=== PATIENT | female | born 1980 | race Caucasian/White ===

== ENCOUNTER 2017-05-07 07:36 | Emergency (ER) | payer OTHER ==
[~2017-05-07] VITALS: Ht 157.5 cm; Wt 50.8 kg
[~2017-05-07 07:36] MED LIST: HYDR-971 PO; LEVO500T59 PO; METR500T PO; ONDA4TAB7 PO
[2017-05-07] MEDS ORDERED: IV NORMAL SALINE 1,000ML 1,000 ML IV SCH (07:55)
[2017-05-07] MEDS ORDERED: fentaNYL PF 100 MCG/2 ML VIAL IV PRN (08:00)
[2017-05-07] MEDS ORDERED: IOHEXOL 300 MG/ML 75 ML VIAL. IV ONE (08:15)
[2017-05-07] MEDS ORDERED: ONDANSETRON PF 4 MG/2 ML VIAL. IV ONE (08:15)
[2017-05-07] MEDS ORDERED: LIDOCAINE 2% TOPICAL JELLY 30GM TUBE. TP ONE (08:24)
[2017-05-07 09:00] LABS: BASO % 0 % (0-3); EOS # 0.2 x10^3/uL (0.0-0.7); EOS % 1 % (0-3); HEMATOCRIT 40.5 % (36.0-47.0); HEMOGLOBIN 13.2 g/dL (12.0-15.5); LYMPH # 1.3 x10^3/uL (1.0-4.8); LYMPH % 10 % (24-48); MEAN CORPUSCULAR HEMOGLOBIN 30 pg (25-35); MEAN CORPUSCULAR HGB CONC 33 g/dL (31-37); MEAN CORPUSCULAR VOLUME 93 fL (79-100); MONO # 1.3 x10^3/uL (0.0-1.1); MONO % 10 % (0-9); NEUT # 10.5 x10^3uL (1.8-7.7); NEUT % 79 % (31-73); PLATELET COUNT 493 x10^3/uL (140-400); RED BLOOD COUNT 4.36 x10^6/uL (3.50-5.40); WHITE BLOOD COUNT 13.2 x10^3/uL (4.0-11.0)
[2017-05-07 09:07] LABS: ALBUMIN/GLOBULIN RATIO 0.6 (1.0-1.7); CALCIUM 9.1 mg/dL (8.5-10.1); CREATININE 0.7 mg/dL (0.6-1.0); GFR 93.6; POTASSIUM 3.7 mmol/L (3.5-5.1); TOTAL BILIRUBIN 0.3 mg/dL (0.2-1.0); TOTAL PROTEIN 8.2 g/dL (6.4-8.2)
[2017-05-07] MEDS ORDERED: HYDROmorphone PF 2 MG/ML VIAL ONE (09:09)
[2017-05-07] MEDS: HYDROmorphone PF 1 MG/ML DISP.SYRIN IV/SQ PRN ×2 (09:16→09:46)
--- NOTE | 2017-05-07 09:18 | PHYS DOC ---
Past History Past Medical History: IBS Past Surgical History: Appendectomy Alcohol Use: None Drug Use: None Adult General Chief Complaint Chief Complaint: abdominal and back pain HPI HPI Patient is a 37-year-old female with stage IV colon cancer who presents to the ED with left-sided lower back pain and nausea and vomiting since last night. She 's never had pain in this location and doesn't know what it could be. She has vomited a couple of times. No blood in that. She may have vomited because the pain was so bad, she really can't say. Patient had surgery in February for colon cancer, she has an ostomy. She was referred to where she has surgery planned in a few days to remove some cancer in her duodenum and also a hysterectomy with BSO. She was doing well until this pain began. She denies fever or chills. She said she recently had a CT scan at and they told her that she had pneumonia based on that scan, but they decided to not put her on antibiotics because she hasn't had a cough or fever or chills. Review of Systems Review of Systems Constitutional: Denies fever or chills [] Eyes: Denies change in visual acuity, redness, or eye pain [] HENT: Denies nasal congestion or sore throat [] Respiratory: Denies cough or shortness of breath [] Cardiovascular: Denies chest pain GI: As in history of present illness : Denies dysuria or hematuria [] Musculoskeletal: As in history of present illness Integument: Denies rash or skin lesions [] Neurologic: Denies headache, focal weakness or sensory changes [] Current Medications Current Medications Current Medications Medications (Trade) Dose Ordered Sig/Ayana Start Time Stop Time Status Last Admin Dose Admin Fentanyl Citrate (Fentanyl 2ml Vial) 50 mcg PRN Q15MIN PRN 05/07/17 08:00 05/08/17 07:59 05/07/17 08:40 50 MCG Hydromorphone HCl (Dilaudid) 2 mg STK-MED ONCE 05/07/17 09:09 05/07/17 09:10 DC Iohexol (Omnipaque 300 Mg/ml) 75 ml 1X ONCE 05/07/17 08:15 05/07/17 08:16 DC 05/07/17 08:47 75 ML Lidocaine HCl (Xylocaine 2% Topical 30gm Tube) 30 quinn STK-MED ONCE 05/07/17 08:24 05/07/17 08:25 DC Ondansetron HCl (Zofran) 4 mg 1X ONCE 05/07/17 08:15 05/07/17 08:16 DC 05/07/17 08:40 4 MG Sodium Chloride 1,000 ml @ 1,000 mls/hr Q1H 05/07/17 07:55 05/07/17 08:54 DC 05/07/17 08:40 1,000 MLS/HR Allergies Allergies Allergies Coded Allergies Type Severity Reaction Last Updated Verified mesalamine Allergy Intermediate hives 11/29/16 Yes Physical Exam Physical Exam Constitutional: Well developed, well nourished, appears uncomfortable, alert, mentating normally. HENT: Normocephalic, atraumatic, bilateral external ears normal, nose normal. [] Eyes: conjunctiva normal, no discharge. [] Neck: Normal range of motion, supple, no stridor. [] Cardiovascular:Heart rate regular rhythm, no murmur [] Lungs & Thorax: Bilateral breath sounds clear to auscultation [] Abdomen: Bowel sounds normal, nondistended, no masses, no pulsatile masses. Ostomy present in the right lower quadrant. Well-healed midline scar. Tenderness to palpation in the left lower quadrant without rebound or guarding. Skin: Warm, dry, no erythema, no rash. [] Back: No tenderness, no CVA tenderness. [] Extremities: No tenderness, no cyanosis, no clubbing, ROM intact, no edema. [] Neurologic: Alert and oriented X 3, normal motor function, normal sensory function, no focal deficits noted. [] Current Patient Data Lab Results Laboratory Tests Test 05/07/17 08:38 White Blood Count 13.2 x10^3/uL (4.0-11.0) H Red Blood Count 4.36 x10^6/uL (3.50-5.40) Hemoglobin 13.2 g/dL (12.0-15.5) Hematocrit 40.5 % (36.0-47.0) Mean Corpuscular Volume 93 fL (79-100) Mean Corpuscular Hemoglobin 30 pg (25-35) Mean Corpuscular Hemoglobin Concent 33 g/dL (31-37) Red Cell Distribution Width 17.0 % (11.5-14.5) H Platelet Count 493 x10^3/uL (140-400) H Neutrophils (%) (Auto) 79 % (31-73) H Lymphocytes (%) (Auto) 10 % (24-48) L Monocytes (%) (Auto) 10 % (0-9) H Eosinophils (%) (Auto) 1 % (0-3) Basophils (%) (Auto) 0 % (0-3) Neutrophils # (Auto) 10.5 x10^3uL (1.8-7.7) H Lymphocytes # (Auto) 1.3 x10^3/uL (1.0-4.8) Monocytes # (Auto) 1.3 x10^3/uL (0.0-1.1) H Eosinophils # (Auto) 0.2 x10^3/uL (0.0-0.7) Basophils # (Auto) 0.0 x10^3/uL (0.0-0.2) Sodium Level 135 mmol/L (136-145) L Potassium Level 3.7 mmol/L (3.5-5.1) Chloride Level 100 mmol/L (98-107) Carbon Dioxide Level 25 mmol/L (21-32) Anion Gap 10 (6-14) Blood Urea Nitrogen 11 mg/dL (7-20) Creatinine 0.7 mg/dL (0.6-1.0) Estimated GFR (Cockcroft-Gault) 93.6 BUN/Creatinine Ratio 16 (6-20) Glucose Level 92 mg/dL (70-99) Calcium Level 9.1 mg/dL (8.5-10.1) Total Bilirubin 0.3 mg/dL (0.2-1.0) Aspartate Amino Transferase (AST) 21 U/L (15-37) Alanine Aminotransferase (ALT) 26 U/L (14-59) Alkaline Phosphatase 212 U/L (46-116) H Total Protein 8.2 g/dL (6.4-8.2) Albumin 3.0 g/dL (3.4-5.0) L Albumin/Globulin Ratio 0.6 (1.0-1.7) L Lipase 74 U/L (73-393) EKG EKG [] Radiology/Procedures Radiology/Procedures [] Course & Med Decision Making Course & Med Decision Making Pertinent Labs and Imaging studies reviewed. (See chart for details) 37-year-old female who is being treated for stage IV colon cancer who had surgery a couple of months ago, is healed up from that, presents with left lower back pain, nausea and vomiting, on exam is also noted to have left lower quadrant abdominal tenderness. I discussed with the patient that we will check some labs, urine, CT scan, give her some IV fluids and IV pain and nausea medications. She is agreeable to that plan. Patient was given some IV fentanyl and Zofran, she continued to have pain and vomiting, she was given IV Dilaudid and Benadryl with Compazine. CT scan showing partial small bowel obstruction in addition to other findings of ascites. I discussed with the patient the finding of small bowel obstruction. I believe she should be transferred to a facility where she could be under the care of a surgeon in case in a day or 2 she ends up needing surgery for this. She prefers to be transferred to [place]. I spoke with the hospitalist on duty, Dr. Kilgore, who will accept the patient for transfer to [facility]. She will be transferred by ambulance. [] Dragon Disclaimer Dragon Disclaimer This chart was dictated in whole or in part using Voice Recognition software in a busy, high-work load, and often noisy Emergency Department environment. It may contain unintended and wholly unrecognized errors or omissions. Departure Departure: Impression: Primary Impression: Small bowel obstruction Additional Impression: Abdominal pain Disposition: 02 XFER SHT-TRM HOSP Condition: STABLE Referrals: KOKO SAEED MD (PCP) Problem Qualifiers LYUBOV NEELY MD May 07, 2017 09:18
--- NOTE | 2017-05-07 09:28 | RAD ---
Indication history of abdominal pain and left-sided pain. History of colon malignancy. Axial images through the abdomen and pelvis were obtained. No oral contrast was administered. Approximately 75 cc of Omnipaque 300 was administered intravenously. Note is made of a previous examination November 29, 2016. The lung bases are clear. Breast implants are noted. Ileostomy is noted in the right lower quadrant. No large bowel is seen compatible with total colectomy. There is a small to moderate amount of abdominal ascites. No hepatic abnormality is seen. The spleen is very small similar to the previous exam. No pancreatic or adrenal pathology is seen. A portion of the mid left ureter is slightly dilated. This is probably incidental. There are calcifications in the pelvis most compatible with phleboliths. The kidneys appear unremarkable.. IVC filter is noted. The gallbladder is grossly normal. The proximal loops of small bowel are somewhat dilated with the distal loops being more collapsed. A component of at least partial mechanical small bowel obstruction is not excluded. Enteritis should also be considered. The uterus has an inhomogeneous appearance. There is an apparent low-density, likely cystic mass associated with the fundus of the uterus measuring approximately 2 cm. A fibroid uterus should be considered. There are enlarged vascular structures in the pelvis suggesting possible pelvic congestion syndrome. There are some scattered mesenteric lymph nodes. These are probably incidental and appear similar to the previous exam. There is, however, some retrocrural adenopathy which is more apparent than on the previous exam. The clinical significance or etiology is not certain. IMPRESSION: Moderate abdominal ascites. Apparent status post total colectomy. Somewhat dilated proximal loops of small bowel. More distal loops appear relatively collapsed. A component of at least partial mechanical small bowel obstruction should be considered. Enteritis should also be considered. Probable fibroid uterus. Small spleen similar to the previous exam. Enlarged pelvic vessels suggesting possible pelvic congestion syndrome. Retrocrural adenopathy. New relative to the previous exam. Clinical significance or etiology is not certain Slight dilatation of the mid left ureter. This is probably incidental. Clinical correlation advised
[2017-05-07] MEDS ORDERED: diphenhydrAMINE 50 MG/ML VIAL IVP ONE (09:30)
[2017-05-07] MEDS ORDERED: PROCHLORPERAZINE 10 MG/2 ML VIAL. IV ONE (09:30)
[2017-05-07 09:56] VITALS: BP 104/69
== END 2017-05-07 10:34 | disposition short-term general hospital (02) ==
LOC: ER 07:36
DX: K56.60 Unspecified intestinal obstruction (principal); K58.9 Irritable bowel syndrome, unspecified; Z85.038 Personal history of other malignant neoplasm of large intestine; Z90.49 Acquired absence of other specified parts of digestive tract; Z88.8 Allergy status to other drugs, medicaments and biological substances
CPT/HCPCS: 36415; 74177; 80053; 83690; 85027; 96361; 96374; 96375; 99285; J0780; J1170; J2405; J3010; Q9967; J7030

== ENCOUNTER → 2017-05-24 | Outpatient (CLI) | payer OTHER ==
[2017-05-07 09:56] VITALS: BP 104/69
[2017-05-24 09:09] LABS: ALBUMIN/GLOBULIN RATIO 0.5 (1.0-1.7); CALCIUM 7.2 mg/dL (8.5-10.1); TOTAL PROTEIN 6.4 g/dL (6.4-8.2)
[2017-05-24 09:10] LABS: BASO % 1 % (0-3); CREATININE 0.8 mg/dL (0.6-1.0); EOS % 4 % (0-3); GFR 80.3; HEMATOCRIT 32.3 % (36.0-47.0); HEMOGLOBIN 10.3 g/dL (12.0-15.5); LYMPH % 13 % (24-48); MAGNESIUM 1.7 mg/dL (1.8-2.4); MEAN CORPUSCULAR HEMOGLOBIN 29 pg (25-35); MEAN CORPUSCULAR HGB CONC 32 g/dL (31-37); MEAN CORPUSCULAR VOLUME 92 fL (79-100); MONO % 7 % (0-9); NEUT # 8.9 x10^3uL (1.8-7.7); NEUT % 75 % (31-73); PHOSPHORUS 3.3 mg/dL (2.6-4.7); PLATELET COUNT 200 x10^3/uL (140-400); POTASSIUM 3.3 mmol/L (3.5-5.1); RED BLOOD COUNT 3.52 x10^6/uL (3.50-5.40); RED CELL DISTRIBUTION WIDTH 15.7 % (11.5-14.5); TOTAL BILIRUBIN 0.1 mg/dL (0.2-1.0); WHITE BLOOD COUNT 11.8 x10^3/uL (4.0-11.0)
[2017-05-24 09:11] LABS: BASO # 0.1 x10^3/uL (0.0-0.2); EOS # 0.5 x10^3/uL (0.0-0.7); LYMPH # 1.5 x10^3/uL (1.0-4.8); MONO # 0.8 x10^3/uL (0.0-1.1)
== END | disposition home or self-care (01) ==
LOC: SPEC 08:47
PROVIDERS: ATTEND Surgery
DX: E87.8 Other disorders of electrolyte and fluid balance, not elsewhere classified (principal)
CPT/HCPCS: 36415; 80053; 83735; 84100; 85027